=== PATIENT | male | born 1995 | race Caucasian/White ===

== ENCOUNTER 2021-01-06 17:06 | Emergency (ER) | payer BC, OTHER ==
[~2021-01-06] VITALS: Ht 180.3 cm; Wt 72.6 kg
--- NOTE | 2021-01-06 17:26 | NUR ---
Patient came in to the c/o chest tightness x 4 days 08/29 ps. On room air, breathing evenly and unlabored. Connected to the monitor and pulse ox. Kept comfortable, will continue to monitor accordingly.
[2021-01-06] MEDS ORDERED: IBUP-1953 PO (18:43)
[2021-01-06 18:51] VITALS: BP 118/77
--- NOTE | 2021-01-06 18:52 | NUR ---
Patient discharged to home in stable condition. Written and verbal after care instructions given. Patient verbalizes understanding of instruction.
== END 2021-01-06 18:52 | disposition home or self-care (01) ==
LOC: ER 17:11
DX: M94.0 Chondrocostal junction syndrome [Tietze] (principal); F32.9 Major depressive disorder, single episode, unspecified; F41.9 Anxiety disorder, unspecified; Z79.899 Other long term (current) drug therapy
CPT/HCPCS: 71045-TC